=== PATIENT | male | born 1995 | race African-American/Black ===

== ENCOUNTER 2018-11-17 19:17 | Emergency (ER) | payer OTHER ==
[2018-11-17] MEDS ORDERED: Ketorolac 60 MG/2 ML SDV IM ONE (19:27)
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
== END 2018-11-17 21:28 | disposition home or self-care (01) ==
LOC: MW.ED 19:17
DX: M54.2 Cervicalgia (principal); V89.2XXA Person injured in unspecified motor-vehicle accident, traffic, initial encounter
CPT/HCPCS: 72125; 72128; 96372; 99284; J1885